=== PATIENT | female | born 2000 | race Two or more races ===

== ENCOUNTER 2019-07-12 07:15 | Inpatient (IN) ==
[2019-07-12 07:24] VITALS: BMI 32.8
[2019-07-12] MEDS ORDERED: D5LR 1L W PITOCIN 10 UNITS/L 10 UNITS/1,000 ML BAG IV PRN (07:48)
[2019-07-12] MEDS ORDERED: REGLAN INJ 10 MG VIAL IVP PRN (07:48)
[2019-07-12] MEDS ORDERED: NUBAIN INJ 200 MG VIAL MULTIDOSE IVP PRN (07:48)
[2019-07-12] MEDS ORDERED: MORPHINE SULFATE INJ 2 MG INJ IVP PRN (07:48)
[2019-07-12] MEDS ORDERED: PITOCIN IVP ONE (07:48)
[2019-07-12] MEDS ORDERED: PHENERGAN INJ 25 MG IM PRN ×2 (07:48→17:53)
[2019-07-12] MEDS ORDERED: D5 1/2 NS 1000 ML 1,000 ML IV ONE ×2 (07:57→14:38)
[2019-07-12 08:31] LABS: BLOOD UREA NITROGEN 8 mg/dL (7-18); CALCIUM 8.8 mg/dL (8.5-10.1); CARBON DIOXIDE 22.6 mmol/L (21-32); CHLORIDE 102 mmol/L (98-107); CREATININE 0.63 mg/dL (0.55-1.02); SODIUM 136 mmol/L (136-145); eGFR NON BLACK RACES > 60 (>60)
[2019-07-12 08:32] LABS: BASOPHILS # (AUTO) 0.1 X10^3/uL (0.0-0.1); BASOPHILS % (AUTO) 0.5 % (0.2-1.0); EOSINOPHILS % (AUTO) 0.4 % (0.9-2.9); HEMATOCRIT 36.7 % (36.0-47.0); LYMPHOCYTES # (AUTO) 2.2 X10^3/uL (1.3-2.9); MEAN CORPUSCULAR HEMOGLOBIN 25.6 pg (27.0-34.0); MEAN CORPUSCULAR HGB CONC 32.7 g/dL (33.0-35.0); MEAN CORPUSCULAR VOLUME 78.3 fL (80.0-100.0); MEAN PLATELET VOLUME 7.8 fL (7.4-11.0); MONOCYTES # (AUTO) 0.7 x10^3/uL (0.3-0.8); MONOCYTES % (AUTO) 5.1 % (0.0-13.0); PLATELET COUNT 274 X10^3/uL (150.0-450.0); RED BLOOD COUNT 4.69 X10^6/uL (3.5-5.4); RED CELL DISTRIBUTION WIDTH 14.6 % (11.6-16.5); WHITE BLOOD COUNT 12.9 X10^3/uL (3.6-10.0)
[2019-07-12 08:42] LABS: BILIRUBIN,URINE NEGATIVE (NEGATIVE); BLOOD/HEMOGLOBIN,URINE NEGATIVE (NEGATIVE); GLUCOSE, URINE NEGATIVE (NEGATIVE); KETONES,URINE NEGATIVE (NEGATIVE); LEUKOCYTE ESTERASE ,URINE 2+ (NEGATIVE); NITRITES,URINE NEGATIVE (NEGATIVE); PROTEIN,URINE 1+ (NEGATIVE); UROBILINOGEN,URINE 1+ (NORMAL)
[2019-07-12 08:49] LABS: APPEARANCE,URINE HAZY (CLEAR); BACTERIA,URINE TRACE /HPF (NEGATIVE); COLOR,URINE YELLOW (YELLOW); RBC,URINE 0-2 /HPF (0-3); SQUAMOUS EPITHELIAL CELL,UR MODERATE /HPF (NEGATIVE)
[2019-07-12 08:50] LABS: MUCUS,URINE FEW /HPF (NEGATIVE)
[2019-07-12 09:03] LABS: PLATELET MORPHOLOGY COMMENT NORMAL (NORMAL)
[2019-07-12] MEDS ORDERED: D5LR 1L W PITOCIN 10 UNITS/L 10 UNITS/1,000 ML BAG IV ONE (09:41)
[2019-07-12] MEDS ORDERED: PITOCIN ONE (09:42)
[2019-07-12] MEDS ORDERED: D5 1/2 NS 1L W PITOCIN 20 UNITS/L 20 UNITS/1,000 ML BAG IV ONE (09:42)
[2019-07-12] MEDS: D5 1/2 NS 1000 ML 1,000 ML IV SCH ×2 (09:55→18:03)
[2019-07-12] MEDS ORDERED: DERMOPLAST SPRAY TOP PRN (17:53)
[2019-07-12] MEDS ORDERED: MOTRIN TAB 800 MG PO PRN (17:53)
[2019-07-12] MEDS ORDERED: ADACEL or BOOSTRIX TDaP VACCINE IM ONE (17:53)
[2019-07-12] MEDS ORDERED: D5 1/2 NS 1000 ML 1,000 ML with PITOCIN 20 UNITS IV SCH ×2 (18:00)
[2019-07-13 05:00] LABS: HEMATOCRIT 33.7 % (36.0-47.0); HEMOGLOBIN 11.2 g/dL (12.0-16.0)
[2019-07-13] MEDS: PRENATAL PLUS PO SCH ×2 (07:15→11:42)
[2019-07-13] MEDS: MOTRIN TAB 800 MG PO PRN ×2 (07:15→15:20)
[2019-07-13] MEDS ORDERED: NS 100 ML IV 100 ML with VENOFER 400 MG IV NR ×2 (09:02)
[2019-07-13 18:10] VITALS: BP 110/61
== END 2019-07-13 18:10 | disposition home or self-care (01) | DRG 807 ==
LOC: ER 07:20 → LD 07:55 → MED/SURG 17:25
PROVIDERS: ADMIT Obstetrics & Gynecology Obstetrics; ATTEND Obstetrics & Gynecology Obstetrics
DX: Z3A.39 39 weeks gestation of pregnancy; O99.02 Anemia complicating childbirth; D50.8 Other iron deficiency anemias; Z37.0 Single live birth
CPT/HCPCS: 36415; 59409; 80048; 81001; 85014; 85018; 85025; 86592; 86850; 86900; 86901; 90715; A4216; A4222; J1756; J7050; S0197; S5010

== ENCOUNTER 2020-05-29 07:33 | Inpatient (IN) ==
[2020-05-29] MEDS ORDERED: D5 1/2 NS 1000 ML 1,000 ML IV ONE (07:38)
[2020-05-29 07:42] VITALS: BMI 26.6
[2020-05-29] MEDS ORDERED: PITOCIN ONE (07:45)
[2020-05-29] MEDS ORDERED: BETADINE SOLN ONE (07:45)
[2020-05-29] MEDS ORDERED: D5 1/2 NS 1L W PITOCIN 20 UNITS/L 20 UNITS/1,000 ML BAG IV ONE (07:46)
[2020-05-29 07:55] LABS: BLOOD UREA NITROGEN 7 mg/dL (7-18); CALCIUM 9.4 mg/dL (8.5-10.1); CARBON DIOXIDE 22.3 mmol/L (21-32); CHLORIDE 102 mmol/L (98-107); CREATININE 0.66 mg/dL (0.55-1.02); SODIUM 137 mmol/L (136-145); eGFR NON BLACK RACES > 60 (>60)
[2020-05-29] MEDS ORDERED: PITOCIN IVP ONE (07:57)
[2020-05-29] MEDS ORDERED: PHENERGAN INJ 25 MG IM PRN ×2 (07:57→10:02)
[2020-05-29] MEDS ORDERED: REGLAN INJ 10 MG VIAL IVP PRN (07:57)
[2020-05-29] MEDS ORDERED: NS 100 ML IV 100 ML IV ONE (07:58)
[2020-05-29] MEDS ORDERED: AMPICILLIN VIAL 2 GRAM ONE (07:58)
[2020-05-29] MEDS ORDERED: D5 1/2 NS 1000 ML 1,000 ML IV SCH (08:00)
[2020-05-29] MEDS ORDERED: AMPICILLIN VIAL 2 GRAM 2 G in NS 100 ML IV + SPIKE MINIBAG* 100 ML IV SCH (08:00)
[2020-05-29 08:05] LABS: BASOPHILS % (AUTO) 0.3 % (0.2-1.0); EOSINOPHILS % (AUTO) 0.2 % (0.9-2.9); HEMATOCRIT 36.2 % (36.0-47.0); HEMOGLOBIN 11.2 g/dL (12.0-16.0); LYMPHOCYTES # (AUTO) 1.4 X10^3/uL (1.3-2.9); LYMPHOCYTES % (AUTO) 11.2 % (21.0-51.0); MEAN CORPUSCULAR HEMOGLOBIN 22.7 pg (27.0-34.0); MEAN CORPUSCULAR VOLUME 73.4 fL (80.0-100.0); MEAN PLATELET VOLUME 8.2 fL (7.4-11.0); MONOCYTES # (AUTO) 0.5 x10^3/uL (0.3-0.8); MONOCYTES % (AUTO) 3.9 % (0.0-13.0); NEUTROPHILS # (AUTO) 10.7 x10^3/uL (2.2-4.8); NEUTROPHILS % (AUTO) 84.4 % (42.0-75.0); PLATELET COUNT 314 X10^3/uL (150.0-450.0); RED BLOOD COUNT 4.93 X10^6/uL (3.5-5.4); RED CELL DISTRIBUTION WIDTH 15.8 % (11.6-16.5); WHITE BLOOD COUNT 12.7 X10^3/uL (3.6-10.0)
[2020-05-29 08:45] LABS: MICROCYTOSIS SLIGHT; PLATELET MORPHOLOGY COMMENT NORMAL (NORMAL)
[2020-05-29] MEDS ORDERED: MOTRIN TAB 800 MG PO ONE (09:56)
[2020-05-29] MEDS: MOTRIN TAB 800 MG PO PRN ×2 (10:26→17:33)
[2020-05-29] MEDS ORDERED: D5 1/2 NS 1000 ML 1,000 ML with PITOCIN 20 UNITS IV SCH ×2 (11:00)
[2020-05-29] MEDS ORDERED: AMPICILLIN VIAL 1 GRAM 1 G in NS 50 ML IV + SPIKE MINIBAG* 50 ML IV SCH (12:00)
[2020-05-29] MEDS ORDERED: MILK OF MAGNESIA PO PRN (12:39)
[2020-05-29] MEDS ORDERED: DERMOPLAST PAIN RELIEF SPRAY TOP PRN (12:39)
[2020-05-29] MEDS ORDERED: AMBIEN PO PRN (12:39)
[2020-05-29] MEDS: PERCOCET TAB 5/325 MG PO PRN ×2 (14:00→22:33)
[2020-05-30] MEDS: MOTRIN TAB 800 MG PO PRN ×2 (01:39→11:26)
[2020-05-30 07:38] LABS: HEMATOCRIT 30.9 % (36.0-47.0); HEMOGLOBIN 9.9 g/dL (12.0-16.0)
[2020-05-30] MEDS: PERCOCET TAB 5/325 MG PO PRN (08:17)
[2020-05-30] MEDS ORDERED: NS 100 ML IV 100 ML with VENOFER 400 MG IV NR ×2 (08:39)
[2020-05-30] MEDS ORDERED: PRENATAL PLUS PO SCH (09:00)
[2020-05-30 12:18] VITALS: BP 112/72
== END 2020-05-30 15:40 | disposition home or self-care (01) | DRG 807 ==
LOC: ER 07:33 → LD 07:40 → MED/SURG 10:23
PROVIDERS: ADMIT Obstetrics & Gynecology Obstetrics; ATTEND Obstetrics & Gynecology Obstetrics
DX: Z3A.38 38 weeks gestation of pregnancy; Z37.0 Single live birth; O80 Encounter for full-term uncomplicated delivery

== ENCOUNTER 2022-06-08 05:45 | Inpatient (IN) ==
[2022-06-08 06:13] VITALS: BMI 32.9
[2022-06-08 06:17] LABS: BILIRUBIN,URINE 1+ (NEGATIVE); BLOOD/HEMOGLOBIN,URINE NEGATIVE (NEGATIVE); GLUCOSE, URINE NEGATIVE (NEGATIVE); KETONES,URINE 1+ (NEGATIVE); LEUKOCYTE ESTERASE ,URINE 2+ (NEGATIVE); NITRITES,URINE NEGATIVE (NEGATIVE); PROTEIN,URINE 2+ (NEGATIVE); UROBILINOGEN,URINE 2+ (NORMAL)
[2022-06-08 06:30] LABS: AMNISURE ROM TEST NO MEMBRANES RUPTURE (NO RUPTURE)
[2022-06-08 06:31] LABS: APPEARANCE,URINE HAZY (CLEAR); COLOR,URINE YELLOW (YELLOW)
[2022-06-08] MEDS ORDERED: PITOCIN ONE (08:03)
[2022-06-08] MEDS ORDERED: BETADINE SOLN ONE (08:03)
[2022-06-08] MEDS ORDERED: D5 1/2 NS 1,000 ML 1,000 ML IV ONE (08:03)
[2022-06-08] MEDS ORDERED: D5 LR + PITOCIN 10 UNITS/L 10 UNITS/1,000 ML BAG IV ONE (08:04)
[2022-06-08] MEDS ORDERED: D5 1/2 NS 1,000 mL + PITOCIN 20 UNITS/L IV 20 UNITS/1,000 ML BAG IV ONE (08:04)
[2022-06-08] MEDS ORDERED: NUBAIN INJ 20 MG AMP IVP PRN (08:31)
[2022-06-08] MEDS ORDERED: DILAUDID INJ IVP PRN (08:31)
[2022-06-08] MEDS ORDERED: D5 LR + PITOCIN 10 UNITS/L 10 UNITS/1,000 ML BAG IV PRN (08:31)
[2022-06-08] MEDS ORDERED: PITOCIN IVP ONE (08:31)
[2022-06-08] MEDS ORDERED: REGLAN INJ 10 MG VIAL IVP PRN (08:31)
[2022-06-08] MEDS ORDERED: MORPHINE SULFATE INJ 2 MG INJ IVP PRN (08:31)
[2022-06-08] MEDS ORDERED: D5 1/2 NS 1,000 ML 1,000 ML IV SCH (09:00)
[2022-06-08 09:03] LABS: MEAN CORPUSCULAR HGB CONC 31.9 g/dL (33.0-35.0); MEAN CORPUSCULAR VOLUME 72.2 fL (80.0-100.0)
[2022-06-08 09:06] LABS: BASOPHILS % (AUTO) 0.4 % (0.2-1.0); EOSINOPHILS % (AUTO) 0.3 % (0.9-2.9); HEMATOCRIT 34.3 % (36.0-47.0); LYMPHOCYTES # (AUTO) 1.3 X10^3/uL (1.3-2.9); LYMPHOCYTES % (AUTO) 10.5 % (21.0-51.0); MONOCYTES # (AUTO) 0.5 x10^3/uL (0.3-0.8); MONOCYTES % (AUTO) 4.1 % (0.0-13.0); NEUTROPHILS # (AUTO) 10.3 x10^3/uL (2.2-4.8); NEUTROPHILS % (AUTO) 84.7 % (42.0-75.0); RED BLOOD COUNT 4.75 X10^6/uL (3.5-5.4); RED CELL DISTRIBUTION WIDTH 15.1 % (11.6-16.5); WHITE BLOOD COUNT 12.1 X10^3/uL (3.6-10.0)
[2022-06-08 09:10] LABS: BLOOD UREA NITROGEN 7 mg/dL (7-18); CALCIUM 8.6 mg/dL (8.5-10.1); CARBON DIOXIDE 23.8 mmol/L (21-32); CHLORIDE 103 mmol/L (98-107); CREATININE 0.59 mg/dL (0.55-1.02); SODIUM 133 mmol/L (136-145); eGFR NON BLACK RACES > 60 (>60)
[2022-06-08 09:51] LABS: HYPOCHROMASIA 1+; MICROCYTOSIS 1+; PLATELET MORPHOLOGY COMMENT NORMAL (NORMAL)
[2022-06-08] MEDS ORDERED: STADOL INJ IVP PRN (10:30)
[2022-06-08] MEDS ORDERED: STADOL INJ ONE (10:32)
[2022-06-08] MEDS ORDERED: MOTRIN TAB 800 MG PO PRN ×2 (12:23→14:27)
[2022-06-08] MEDS: D5 1/2 NS 1,000 ML 1,000 ML with PITOCIN 20 UNITS IV SCH ×4 (13:00→22:32)
[2022-06-08] MEDS ORDERED: AMBIEN PO PRN (13:47)
[2022-06-08] MEDS ORDERED: MILK OF MAGNESIA PO PRN (13:47)
[2022-06-08] MEDS ORDERED: DERMOPLAST PAIN RELIEF SPRAY TOP PRN (13:47)
[2022-06-08] MEDS ORDERED: MOTRIN TAB 800 MG PO ONE (14:50)
[2022-06-08] MEDS: PERCOCET TAB 5/325 MG PO PRN ×2 (17:42→22:31)
[2022-06-09] MEDS: D5 1/2 NS 1,000 ML 1,000 ML with PITOCIN 20 UNITS IV SCH ×6 (01:03→12:24)
[2022-06-09 05:23] LABS: HEMATOCRIT 29.2 % (36.0-47.0); HEMOGLOBIN 9.6 g/dL (12.0-16.0)
[2022-06-09] MEDS: PERCOCET TAB 5/325 MG PO PRN (07:57)
[2022-06-09] MEDS ORDERED: NS 100 ML IV 100 ML with VENOFER 400 MG IV ONE ×2 (08:35)
[2022-06-09] MEDS ORDERED: PRENATAL PLUS PO SCH (09:00)
[2022-06-09 12:40] VITALS: BP 114/65
== END 2022-06-09 14:05 | disposition home or self-care (01) | DRG 807 ==
LOC: ER 05:55 → LD 07:47 → MED/SURG 14:16
PROVIDERS: ADMIT Obstetrics & Gynecology Obstetrics; ATTEND Obstetrics & Gynecology Obstetrics
DX: Z3A.39 39 weeks gestation of pregnancy; Z37.0 Single live birth; O80 Encounter for full-term uncomplicated delivery